=== PATIENT | female | born 1940 | race Caucasian/White ===

== ENCOUNTER → 2017-11-15 | Outpatient (CLI) | payer OTHER ==
[~2017-11-15] VITALS: Ht 152.4 cm; Wt 55.3 kg
[~2017-11-15] MED LIST: ATIVAN1 MG PO; LEVOTHYROXINE25 MCG PO; LISINOPRIL10 MG PO; SULINDAC 200MG200 M1 PO; TRAMADOL 50 MG50 MG PO
--- NOTE | ~2017-11-15 | HPC ---
[facility] [place] [address] PAIN MANAGEMENT CONSULTATION Name: YAKOV BOLAND Room #: REG CHANTELL Costello#: [id number] Admission: 11/15/17 Attend Phys: Dakota Cardoso DO Discharge: Date of : 40 Report #: [id number] THIS REPORT FOR: //name// CC: Delbert Duncan DATE OF SERVICE: 11/15/2017 HISTORY OF PRESENT ILLNESS: The patient is a pleasant 76-year-old female seen in consultation at the request Dr. Griffin for evaluation of pain, low back, right greater than left leg, radiating down into the feet. The patient notes symptoms began this past August. She does relate an antecedent fall in May or June, though there was a fairly good period of time between that injury in her radicular symptoms. She notes since late August or early September, she has had periodic, burning, shooting, cramping, aching, throbbing, sharp pain. She rates anywhere from a 5-10 on a visual analog scale. She sought chiropractic manipulation, has tried Tylenol, hydrocodone caused untoward sedation, does use tramadol p.r.n., sulindac has helped some for the last 2 weeks. She notes weakness subjectively, though she has had no falls, paresthesia in bilateral legs. She denies saddle anesthesia or change in bowel or bladder continence changes. She notes symptoms are worse when she is sitting, gets some relief briefly with standing. REVIEW OF SYSTEMS: Complete review of systems attached to the chart and was gone over with the patient. She is , seen in the company of her and daughter who are supportive. PAST MEDICAL HISTORY: Includes hypertension, treated with lisinopril; some chronic anxiety for which she takes lorazepam; tramadol and sulindac chronically for some arthritic issues. Had a cholesteatoma removed 35 years ago, left ear. Hemorrhoid surgery at 55 years of age, hysterectomy at 40 years of age and an appendectomy in 1953. She has been retired for 25 years. Pain impact score is quite high, 65/70. PHYSICAL EXAMINATION: GENERAL: Reveals a 5 feet tall, 122-pound female, BMI is 23.8 kilograms per meter squared. VITAL SIGNS: Blood pressure is 152/89, pulse 66, respirations 16. Subjective pain score is 5 at present. [facility] [address] [place] [address] PAIN MANAGEMENT CONSULTATION Name: YAKOV BOLAND Room #: REG [facility]#: [id number] Admission: 11/15/17 Attend Phys: Dakota Cardoso DO Discharge: Date of : 40 Report #: [id number] NEUROLOGIC: Cranial nerves 2-12 are grossly intact. HEENT: Pupils equal and reactive to light and accommodation. Extraocular muscles are intact. She does have decreased auditory acuity, left ear. Thyroid is unremarkable. HEART: Regular rhythmical without murmur. LUNGS: Clear to auscultation. MUSCULOSKELETAL: Upper extremity strength is preserved. She is using a cane in her right hand. Has a somewhat ataxic gait. Right patellar reflex is absent, it is 1-2/4 in the left. Achilles reflexes are symmetric. Straight leg raise modestly positive on the right at 30 degrees. Right leg does show diminished strength about 3/5 to all muscle groups tested. Left leg is a little bit stronger at 3-4/5. Skin integument is intact. DIAGNOSTIC STUDIES: Include MRI of the lumbar spine from 11/07/2017 noting L3-L4 to have central disk protrusion with bilateral facet degenerative changes causing marked central stenosis with right greater than left neural foraminal stenosis. L4-L5 notes grade 1 anterolisthesis at L4-L5. ASSESSMENT: Symptomatic lumbar radiculopathy by clinical exam and history. RECOMMENDATIONS: 1. Continue sulindac. 2. Epidural injection under fluoroscopy today, right of midline L4-L5. 3. Follow up in 3 weeks to reevaluate, consider repeat injection if indicated clinically. Thanks for allowing me to participate in this patient's care. I will keep you abreast of her progress. PROCEDURE: Lumbar epidural injection under fluoroscopy. PROCEDURE NOTE: After both written and informed consent to include risk of spinal cord damage, increased pain, weakness and dural puncture, the patient was taken to the fluoroscopy suite, placed in the prone position. After sterile prep and drape, a skin wheal with lidocaine was raised. A 22-gauge epidural Tuohy needle was inserted in the midline at L4-L5 with good loss to resistance. Negative aspiration for cerebrospinal fluid or blood was noted. Then 1 mL of Omnipaque under biplanar fluoroscopy showed good spread within the epidural space. This was followed with 80 mg of triamcinolone plus 1 mL of 1.5% preservative-free Xylocaine, 0.5 mL Xylocaine was then injected to flush the needle; it was removed. The patient was monitored for an appropriate period of time and discharged in good and stable condition. <ELECTRONICALLY SIGNED> By: Dakota Cardoso DO 11/18/17 0748 [id number] Dakota Cardoso, DO /nt
[2017-11-15 12:49] VITALS: BP 152/89
== END ==
LOC: PAIN 07:03
DX: M54.16 Radiculopathy, lumbar region (principal); I10 Essential (primary) hypertension

== ENCOUNTER → 2017-12-02 | Outpatient (CLI) | payer OTHER ==
[~2017-12-02] VITALS: Ht 152.4 cm; Wt 54.7 kg
--- NOTE | ~2017-12-02 | HPC ---
[facility] [place] [address] PAIN MANAGEMENT CONSULTATION Name: YAKOV BOLAND Room #: REG [facility] [id number] Admission: 12/02/17 Attend Phys: Dakota Cardoso DO Discharge: Date of : 40 Report #: [id number] THIS REPORT FOR: //name// CC: Brent Cardoso DATE OF SERVICE: 12/02/2017 The patient is a 77-year-old female, prior seen in the pain clinic 11/15/2017, seen in consultation, given a single epidural injection L4-L5 at that time, continued on sulindac. Returns to pain clinic today noting she had near 80% relief following the injection and was doing well until she fell. She states she bent over to pick up driver an object, got dizzy and fell back, striking her right low back. Pain has recurred. She rates it 6 on VAS. She notes the pain is exacerbated with standing, walking and bending. She describes it "dull, cramping, aching, raw" sensation. Denies significant weakness though and she has started to use a cane occasionally to help with balance. PHYSICAL EXAMINATION: Shows 56-year-old female, BMI is 29.4 kilograms per meter squared. Diffuse tenderness across the low back, modestly antalgic gait. Does have a little bit of an ataxic gait. Lower extremity strength is diminished. Positive straight leg raise on right side. Deep tendon reflexes are diminished but symmetric. We reviewed her MRI from 11/07/2017. She does have L3-L4, marked central stenosis; L4-L5, grade 1 anterolisthesis with left greater than right neural foraminal narrowing (contralateral to primary right lumbar radicular symptoms). ASSESSMENT: Symptomatic lumbar radiculopathy secondary to spinal stenosis. RECOMMENDATION: Long discussion with the patient today and her about therapeutic options. We will repeat epidural injection under fluoroscopy today. Refer to physical therapy for core strengthening and balance exercises. If this does not afford adequate relief, we will refer to Neurosurgery for consideration for more definitive intervention. Given this; however, the patient is really not much of a surgical candidate. She is not enthused at all about moving forward with surgery. She had a liver transplant in 1994. She has history of chronic fibromyalgia. Medication list was reconciled today. [address] [address] PAIN MANAGEMENT CONSULTATION Name: MARTAYAKOV NORMAN Room #: REG CHANTELL Costello#: [id number] Admission: 12/02/17 Attend Phys: Dakota Cardoso DO Discharge: Date of : 40 Report #: [id number] ASSESSMENT: Left symptomatic lumbar radiculopathy. PROCEDURE: Lumbar epidural injection under fluoroscopy. PROCEDURE NOTE: After both written and informed consent to include risk of spinal cord damage, increased pain, weakness and dural puncture, the patient was taken to the fluoroscopy suite, placed in the prone position. After sterile prep and drape, a skin wheal with lidocaine was raised. A 22-gauge epidural Tuohy needle was inserted in the midline at L4-L5 with good loss to resistance. Negative aspiration for cerebrospinal fluid or blood was noted. Then 1 mL of Omnipaque under biplanar fluoroscopy showed good spread within the epidural space. This was followed with 80 mg of triamcinolone plus 1 mL of 1.5% preservative-free Xylocaine, 0.5 mL Xylocaine was then injected to flush the needle; it was removed. The patient was monitored for an appropriate period of time and discharged in good and stable condition. <ELECTRONICALLY SIGNED> By: Dakota Cardoso DO 12/05/17 0938 [id number] Dakota Cardoso DO /nt
[2017-12-02 11:31] VITALS: BP 159/82
== END | disposition home or self-care (01) ==
LOC: PAIN 07:19
DX: M54.16 Radiculopathy, lumbar region (principal); M48.061 Spinal stenosis, lumbar region without neurogenic claudication; Z98.890 Other specified postprocedural states; Z79.899 Other long term (current) drug therapy

== ENCOUNTER → 2018-02-07 | Outpatient (CLI) | payer OTHER ==
[~2018-02-07] VITALS: Ht 142.2 cm; Wt 56.2 kg
--- NOTE | ~2018-02-07 | HPC ---
[facility] [place] [address] PAIN MANAGEMENT CONSULTATION Name: YAKOV BOLAND Room #: REG [facility]#: [id number] Admission: 02/07/18 Attend Phys: Dakota Cardoso DO Discharge: Date of : 40 Report #: [id number] THIS REPORT FOR: //name// CC: Brent Cardoso HISTORY OF PRESENT ILLNESS: The patient is a very pleasant 77-year-old female. She has had 2 lumbar epidural injections, 11/15/2017 and 12/02/2017. She has only had nominal efficacy, she reports, perhaps 15% improvement. She did see a chiropractor and has been undergoing some decompressive therapy and thinks that this has helped some. She rates her subjective pain score a 5 on the VAS at present. Today she does report that overall her improvement is perhaps 50%. The patient notes the pain is in the right hip, leg to her foot, a little bit in the left calf. She notes the pain is exacerbated with standing. She describes it is sharp, yet dull and intermittent. PHYSICAL EXAMINATION: GENERAL: Reveals a 77-year-old female. VITAL SIGNS: BMI is 27.8 kilograms per meter squared. Blood pressure 160/81, pulse 65 and respirations are 14. NEUROLOGIC: She is alert and oriented to person, place and time; judged to be a reasonable historian. Rises from the chair using armrest. She has a modestly antalgic gait. Slight decreased strength, right leg compared to the left, mostly with hip flexion , but gait is generally tandem. Positive straight leg raise on the right at 30 degrees. IMAGING DATA: We have reviewed diagnostic studies including MRI of the lumbar spine from 11/07/2017. L3-L4 does have central disk protrusion with bilateral facet degenerative changes, causing marked stenosis at this level, right greater than the left. Grade 1 anterolisthesis at L4-L5. Prior injections had been at L4-L5, again with nominal efficacy. I had a prolonged visit with the patient, her and daughter. They had many questions about therapeutic interventions and options. I suggested the patient may unfortunately require surgical decompression. I told her that she has multiple areas of compromise, left L4-L5 and L5-S1, though the primary symptoms are on the right side, which is primarily at L3-L4. I suggested that if surgery was recommended as a minimally invasive decompressive laminectomy at L3-L4 on the right, that may be a reasonable option. Given her otherwise good health, I think she might be a reasonable surgical candidate, but family was interested in other options. They asked about laser spine surgery. I suggest that the [facility] does multiple surgeries, including conventional minimally invasive laminectomies. I am not entirely familiar with the concept of lasers to decompress, though I did tell them I was aware that lasers are often use in the intraoperative field to cause neurolysis of the [facility] [address] [address] PAIN MANAGEMENT CONSULTATION Name: MARTAKALIYAKOV CHO Babs Room #: REG CHANTELL Costello#: [id number] Admission: 02/07/18 Attend Phys: Dakota Cardoso DO Discharge: Date of : 40 Report #: [id number] dorsal rami innervating the facets for axial back pain. We also talked about the spinal cord stimulator, which her daughter brought up. We talked about this as a possible therapeutic modality as well. I noted it is typically approved for lumbar radiculopathy, status post decompressive laminectomy, though we have received authorization to proceed with a spinal cord stimulator in some patients who are not deemed surgical candidates, but have ongoing radicular pain. After a long discussion with the patient, daughter and family, we have elected to proceed with epidural injection at L3-L4 to try and get a little better overall relief. If this does not afford adequate relief, the patient will follow up with Neurosurgery for possible definitive intervention. ASSESSMENT: Symptomatic lumbar radiculopathy secondary to spinal stenosis. PROCEDURE: Lumbar epidural injection under fluoroscopy at L3-L4. DESCRIPTION OF PROCEDURE: After written and informed consent was obtained, including risk of paralysis, increased pain and weakness, the patient wished to proceed and was taken to the fluoroscopy suite and placed in prone position. After sterile prep and drape, the skin was raised. A 22-gauge stylet needle was placed into the posterior spinous process at L3-L4. Stylet was removed and a saline-filled glass syringe was connected. With biplanar fluoroscopy and continuous plunger pressure, the needle was gently advanced into the epidural space. The patient did have episode of pain at the insertion site. The procedure was stopped and the pain resolved. Loss of resistance was noted at this level. The saline-filled syringe was disconnected and a low-volume tubing was connected to the needle and 1 mL of Omnipaque was injected, which showed spread within the epidural space. This was replaced with a syringe containing 80 mg triamcinolone plus 2 mL of 1% preservative-free Xylocaine. As I initially started to inject, the patient developed some pain in the right leg. We got a little less than half of the injectate in before the patient experienced pain. I aborted the procedure at that point. Needle was removed. The patient was monitored in the recovery room for a prolonged period. She did have exacerbation of pain in the right leg, in an L3-L4 distribution. She did have objective dorsiflexion, plantar flexion, lower extremity extension, flexion and hip flexion strength, though subjective pain interfered with function. Ultimately, the patient elected to go home. She was able to stand with assistance, but we put her in a wheelchair and rolled her to the vehicle. Her assisted her into the car. The patient assured us that she would be able to go home. Her suggested that she would probably sleep at home. I did ask them to contact the hospital or come to the Emergency Room if she had any concerns with increasing pain, weakness or loss of bowel or bladder continence changes. I did ask the patient to contact the pain clinic on Saturday if she had any residual concerns. She was given contact information for Dr. Nguyễn of [address] [address] PAIN MANAGEMENT CONSULTATION Name: YAKOV BOLAND [facility] #: [facility] [id number] Admission: 02/07/18 Attend Phys: Dakota Cardoso DO Discharge: Date of : 40 Report #: [id number] to follow up for consideration of lumbar decompressive surgery if indicated. We did discuss multiple options today including possibly a minimally invasive single level lumbar laminectomy. Will defer to surgery for further treatment. Discharged ultimately in stable condition. <ELECTRONICALLY SIGNED> By: Dakota Cardoso DO 02/10/18 0751 [id number] Dakota Cardoso DO /jessie
[2018-02-07 10:42] VITALS: BP 160/81
== END | disposition home or self-care (01) ==
LOC: PAIN 07:22
DX: M48.061 Spinal stenosis, lumbar region without neurogenic claudication (principal); M54.16 Radiculopathy, lumbar region; Z98.890 Other specified postprocedural states; Z79.891 Long term (current) use of opiate analgesic; Z79.899 Other long term (current) drug therapy

== ENCOUNTER → 2021-01-03 | Outpatient (CLI) | payer OTHER | LOC: HYPER 13:21 | PROVIDERS: ATTEND Emergency Medicine | DX: T58.11XA Toxic effect of carbon monoxide from utility gas, accidental (unintentional), initial encounter (principal); H90.3 Sensorineural hearing loss, bilateral; F41.8 Other specified anxiety disorders; M48.061 Spinal stenosis, lumbar region without neurogenic claudication; I10 Essential (primary) hypertension; K58.9 Irritable bowel syndrome, unspecified; M19.90 Unspecified osteoarthritis, unspecified site; E03.9 Hypothyroidism, unspecified; E78.5 Hyperlipidemia, unspecified; J45.909 Unspecified asthma, uncomplicated; E66.9 Obesity, unspecified; F41.9 Anxiety disorder, unspecified; F32.9 Major depressive disorder, single episode, unspecified; Z90.710 Acquired absence of both cervix and uterus; Z90.49 Acquired absence of other specified parts of digestive tract; Z79.899 Other long term (current) drug therapy ==